=== PATIENT | male | born 1975 | race African-American/Black ===

== ENCOUNTER 2025-08-29 16:21 | Emergency (ER) | payer BC ==
[~2025-08-29] VITALS: Ht 175.3 cm; Wt 88.5 kg
[2025-08-29 16:29] VITALS: BP 127/72; PULSE 64; RESP 18; TEMP 97.8; O2SAT 97
[2025-08-29] MEDS ORDERED: DECADRON ONE (16:44)
[2025-08-29] MEDS ORDERED: TORADOL ONE (16:44)
[2025-08-29] MEDS: DECADRON IM ONE (16:48)
[2025-08-29] MEDS: TORADOL IM STA (16:49)
[2025-08-29 16:57] VITALS: BP 126/80; PULSE 68; RESP 18; O2SAT 99
== END 2025-08-29 16:57 | disposition home or self-care (01) ==
LOC: ER 16:55
DX: S33.5XXA Sprain of ligaments of lumbar spine, initial encounter (principal); E11.9 Type 2 diabetes mellitus without complications; Z79.85 Long-term (current) use of injectable non-insulin antidiabetic drugs; X58.XXXA Exposure to other specified factors, initial encounter; Y93.89 Activity, other specified; Y92.89 Other specified places as the place of occurrence of the external cause; Y99.0 Civilian activity done for income or pay
CPT/HCPCS: 99284; 96372 ×2; J1885; J1100